=== PATIENT | female | born 1980 | race African-American/Black ===

== ENCOUNTER 2016-09-18 15:39 | Emergency (ER) | payer OTHER ==
[~2016-09-18] VITALS: Ht 162.6 cm; Wt 79.4 kg
[~2016-09-18 15:39] MED LIST: CYCLOBENZAPRINE5 MG PO; FLAGYL500 MG PO; IBUPROFEN 600600 M1 PO; IBUPROFEN 800800 MG PO; MACROBID 100 M100 M1 PO; NOHOMEMEDICATIONS; NORCO 5-325 TA1 EACH PO; PHENERGAN 25 MG25 M1 PO; ZOFRAN 4 MG ORAL4 M1 DIS; ZOFRAN ODT4 MG PO
[2016-09-18 15:57] VITALS: BP 135/95
[2016-09-18] MEDS ORDERED: SEROQUEL 50 MG50 MG PO (16:04)
[2016-09-18] MEDS ORDERED: NAPROSYN500 MG PO (16:04)
[2016-09-18] MEDS ORDERED: NORFLEX100 MG PO (16:04)
== END 2016-09-18 16:25 | disposition home or self-care (01) ==
LOC: ER 15:39
DX: S16.1XXA Strain of muscle, fascia and tendon at neck level, initial encounter (principal); S39.012A Strain of muscle, fascia and tendon of lower back, initial encounter; F10.99 Alcohol use, unspecified with unspecified alcohol-induced disorder; Z88.8 Allergy status to other drugs, medicaments and biological substances; V89.2XXA Person injured in unspecified motor-vehicle accident, traffic, initial encounter; Y93.89 Activity, other specified; Y92.89 Other specified places as the place of occurrence of the external cause; Y99.8 Other external cause status

== ENCOUNTER 2017-08-20 18:51 | Emergency (ER) | payer OTHER ==
[~2017-08-20] VITALS: Ht 162.6 cm; Wt 72.6 kg
[~2017-08-20 18:51] MED LIST changes: +NAPROSYN500 MG PO; +NORFLEX100 MG PO; +SEROQUEL 50 MG50 MG PO
[2017-08-20 18:58] VITALS: BP 133/97
[2017-08-20] MEDS ORDERED: ZOFRAN ODT4 MG DISSOLVE (19:34)
== END 2017-08-20 19:45 | disposition home or self-care (01) ==
LOC: ER 18:51
DX: R11.2 Nausea with vomiting, unspecified (principal); R04.0 Epistaxis; Z88.8 Allergy status to other drugs, medicaments and biological substances

== ENCOUNTER 2018-11-27 04:12 | Inpatient (IN) | payer OTHER ==
[~2018-11-27] VITALS: Ht 162.6 cm; Wt 74.0 kg
[~2018-11-27 04:12] MED LIST changes: +ZOFRAN ODT4 MG DISSOLVE
[2018-11-27 04:18] VITALS: BP 152/113
[2018-11-27 04:36] LABS: ABSOLUTE NEUTROPHILS 4.4 thou/uL (1.4-8.2); BASOPHILS 0.6 % (0.0-2.0); EOSINOPHILS 0.8 % (0.0-3.0); HEMATOCRIT 41.6 % (37.0-47.0); LYMPHOCYTES 35.7 % (24.0-44.0); MCH 28.8 pg (26.0-34.0); MCHC 33.7 g/dL (28.0-37.0); MCV 85.5 fL (80.0-100.0); MONOCYTES 4.2 % (1.0-8.0); PLATELET COUNT 259 thou/uL (150-400); POLYS 58.7 % (36.0-66.0); RBC 4.87 mil/uL (4.20-5.00); RDW 16.8 % (10.5-14.5); WBC 7.4 thou/uL (4.0-11.0)
[2018-11-27 04:43] LABS: ANION GAP 13 mmol/L (7-16); BUN 11 mg/dL (7-18); CALCIUM 9.3 mg/dL (8.5-10.1); CHLORIDE 106 mmol/L (98-107); CO2 26 mmol/L (21-32); CREATININE 0.9 mg/dL (0.6-1.0); GLUCOSE 113 mg/dL (74-106); POTASSIUM 3.5 mmol/L (3.5-5.1); SODIUM 145 mmol/L (136-145)
[2018-11-27 04:52] LABS: ALBUMIN 3.9 g/dL (3.4-5.0); SGOT 20 U/L (15-37); SGPT 22 U/L (30-65); TOTAL BILIRUBIN 0.6 mg/dL (<0.1-1.0); TOTAL PROTEIN 7.7 g/dL (6.4-8.2); TROPONIN-I <0.06 ng/mL (<0.06)
[2018-11-27 06:57] LABS: BE(vivo) -1.1 mmol/L (-2 to +3); HCO3 22.6 mmol/L (22.0-26.0); PCO2 35.1 mmHg (35.0-45.0); PO2 100.4 mmHg (80.0-100.0); pH 7.427 (7.360-7.450); sO2 97.8 % (92.0-98.0)
[2018-11-27 07:25] VITALS: BP 152/113
[2018-11-27 07:34] VITALS: BP 134/105
--- NOTE | 2018-11-27 08:33 | EKG ---
[address] [address] ELECTROCARDIOGRAM REPORT Name: PATRICIA BARRY JAYNA Room #: 217- ADM IN ..#: [id number] ������������������ Admission: 11/27/18 ������������������ Attend Phys: Reece Goss MD Discharge: ������������������ Date of : 76 Report #: [id number] ����������������������������������������������������������������� [id number] THIS REPORT FOR: //name// [facility] ED Test Date: 2018-11-27 Test Time: 04:41:07 Pat Name: PATRICIA BARRY Department: Room: 217 Gender: F Clerk: : 1980 Requested By: Kary Carter Order Number: [id number] MD: Odin Rios Measurements Intervals [place] Rate: 88 P: 51 [place]: 195 QRS: 151 QRSD: 104 T: -17 QT: 408 QTc: 494 Interpretive Statements Sinus rhythm RBBB Compared to ECG 06/07/2012 18:00:11 Electronically Signed On 11-27-2018 8:33:29 CDT by Odin Rios [email or web address] ��������������������������������������������� <ELECTRONICALLY SIGNED> ���������������������������������������� By: Odin Rios MD ��������������������������������������������� 11/27/18 0833 0 0 Odin Rios MD /REA
[2018-11-27 09:19] VITALS: BP 149/109
--- NOTE | 2018-11-27 09:46 | 2DMMODE ---
[facility] [address] [place] [address] 2 D/M-MODE ECHOCARDIOGRAM Name: JHONNYPATRICIA JAYNA Room #: 217-P ADM IN M.R.#: [id number] ������������� Admission: 11/27/18 ������������� Attend Phys: Guadalupe Toro Discharge: ��� ������������� ��� Date of : 76 Date of Service: 11/27/18 0945 �� Report #: [id number] �������� ��������������������������������������������[id number] THIS REPORT FOR: //name// APPROVED REPORT Study performed: 11/27/2018 08:21:36 EXAM: Comprehensive 2D, Doppler, and color-flow Echocardiogram Patient Location: Bedside Room #: [facility] Status: routine BSA: 1.78 HR: 99 bpm BP: 149/109 mmHg Rhythm: NSR Other Information Study Quality: Technically DifficultTechnically Limited Technically limited study due to Congenital Abnormailty, Transpositionof the great vessels. Indications Congestive Heart Failure Hypertension/HDD 2D Dimensions IVSd: 8.79 (7-11mm) LVDd: 29.80 mm PWd: 7.39 (7-11mm) LVDs: 25.41 (25-40mm) IVC: 22.00 mm Tricuspid Valve TR Peak [place].: 5.14 m/s TR Peak Gr.: 105.64 mmHg PA Pressure: 115.00 mmHg Left Ventricle The left ventricle is normal size. There is normal left ventricular wall thickness. Left ventricular systolic function is at the lower limits of normal. Flattened septum consistent with systemic ventricular volume and pressure overload. LVEF (non-systemic ventricle) is 45%. This study is not technically sufficient to allow evaluation of the LV diastolic function. [facility] [address] [place] [address] 2 D/M-MODE ECHOCARDIOGRAM Name: JHONNYPATRICIA Room #: 217-P ADM IN M.R.#: [id number] ������������� Admission: 11/27/18 ������������� Attend Phys: Guadalupe Toro Discharge: ��� ������������� ��� Date of : 76 Date of Service: 11/27/18 0945 �� Report #: [id number] �������� ��������������������������������������������[id number] Right Ventricle Right ventricle (systemic ventricle) is severely dilated and hypokinetic. Right ventricle is severely hypokinetic. EF<20% Atria Left atrium is not well visualized. Probable atrial baffle; consider Senning repair Right atrium is dilated. Aortic Valve The aortic valve is not well visualized. No aortic regurgitation is present. There is no aortic valvular stenosis. Mitral Valve The mitral valve is normal in structure. Trace mitral regurgitation. Unable to assess pulmonary artery pressures No evidence of mitral valve stenosis. Tricuspid Valve The tricuspid valve is normal in structure. There is moderate systemic ventricle AV valve regurgitation. Pulmonic Valve Pulmonic valve is not well visualized. There is no pulmonic valvular regurgitation. Great Vessels The aortic root is normal in size. IVC is dilated and collapses <50% with inspiration. Pericardium There is no pericardial effusion. 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 Flattened septum consistent with systemic ventricular volume and pressure overload. Right ventricle (systemic ventricle) is severely dilated and hypokinetic. EF<20% Probable atrial baffle; consider Senning repair [facility] [address] [place] [address] 2 D/M-MODE ECHOCARDIOGRAM Name: PATRICIA BARRY JAYNA Room #: [address] [place] [address] IN ..#: [id number] ������������� Admission: 11/27/18 ������������� Attend Phys: Guadalupe Toro Discharge: ��� ������������� ��� Date of : 76 Date of Service: 11/27/18944 �� Report #: [id number] �������� ��������������������������������������������[id number] There is moderate systemic ventricle AV valve regurgitation. Pulmonary artery pressure could not be reliably ascertained There is no pericardial effusion. ��������������������������������������������� <ELECTRONICALLY SIGNED> ���������������������������������������� By: Peter Bansal MD, FACC ��������������������������������������������� 11/27/18944 4 4 Peter Bansal MD, FAC /INF
--- NOTE | 2018-11-27 10:35 | NUR ---
FAXED FACE SHEET AND H/P TO TRANSFER CENTER AND LEFT MSG WITH ADM. OF INFO FAXED. DCP TO FOLLOW.
--- NOTE | 2018-11-27 13:27 | NUR ---
PT ADMITTED TO CCU FROM ED THIS AM. SINUS TACH ON THE MONITOR. ON 6 L NC. SHORT OF BREATH WHILE LAYING DOWN. UP WITH STANDBY ASSIST TO THE BATHROOM. ECHO DONE. ORDERS TO TRANSFER PT TO FOR FURTHER CARE. REPORT CALLED TO NURSE AT [facility]. PATIENT AWARE AND HAS NO QUESTIONS OR CONCERNS. TRANSPORTATION THROUGH [facility].
--- NOTE | 2018-11-27 13:49 | NUR ---
Patient admits with heart failure. Per cardiology and hospitalist plan transfer to . Luis with [facility] at transfer team. Faxed pertinent information and uploaded radiology to cloud. Patient with need for congential cardiology. Dr Viv Cordova accepting phys at [facility]. Transfer forms completed and sigend. Updated Dr Toro of accepting phys and dc. [facility] for 1330. Chart copied no further needs.
== END 2018-11-27 15:00 | disposition short-term general hospital (02) | DRG 291 ==
LOC: ER 04:12 → 2N 06:43 → EROBS 06:43 → 2N 07:36
PROVIDERS: Student in an Organized Health Care Education/Training Program; ADMIT Internal Medicine
DX: I50.21 Acute systolic (congestive) heart failure (principal); J96.01 Acute respiratory failure with hypoxia; J18.9 Pneumonia, unspecified organism; J98.11 Atelectasis; F12.90 Cannabis use, unspecified, uncomplicated; R00.0 Tachycardia, unspecified; Z80.9 Family history of malignant neoplasm, unspecified; Z95.1 Presence of aortocoronary bypass graft; Z88.8 Allergy status to other drugs, medicaments and biological substances; Z79.899 Other long term (current) drug therapy
CPT/HCPCS: 10078